=== PATIENT | male | born 1955 | race Caucasian/White ===

== ENCOUNTER → 2023-01-14 12:44 | Outpatient (CLI) | payer MEDICARE, SELFPAY ==
--- NOTE | 2023-01-14 13:08 | US_ITS ---
FINAL REPORT CLINICAL HISTORY: decreased pedal pulses, HTN, current smoker, bilateral claudication FINDINGS: COMPLETE ANKLE/BRACHIAL INDICES BILATERAL Complete ankle brachial indices were obtained. The right MARTY is 0.36. The left MARTY is 0.53. IMPRESSION: Advanced arterial occlusive disease on the right. Moderate arterial occlusive disease on the left. Recommend CTA or catheter directed angiography. Reviewed, Interpreted and Dictated by Carlo Galvan MD Transcribed by Renetta Darnell Authenticated and [facility]
== END ==
PROVIDERS: PCP Family Medicine; Visit Provider Nurse Practitioner Family
DX: R09.89 Other specified symptoms and signs involving the circulatory and respiratory systems (principal)
CPT/HCPCS: 93923

== ENCOUNTER → 2023-01-28 10:49 | Outpatient (CLI) | payer MEDICARE, SELFPAY ==
--- NOTE | 2023-01-28 10:50 | CA_ITS ---
FINAL REPORT TECHNIQUE: Color Doppler, duplex Doppler and mena scale sonography of the bilateral neck arterial vasculature was performed. Velocities were measured in the carotid arteries. Stenosis evaluation based on the validated velocity criteria. CLINICAL HISTORY: RAÚL BRUITS,HTN,SMOKER FINDINGS: The peak systolic velocity of the right common carotid artery is 85 cm/s. The peak systolic velocity of the right internal carotid artery is 145 cm/s and end diastolic velocity 26 cm/s. The ICA/CCA ratio is 1.7. A moderate amount of plaque is present. The right external carotid artery is patent. The right vertebral artery is patent with antegrade flow. The peak systolic velocity of the left common carotid artery is 88 cm/s. The peak systolic velocity of the left internal carotid artery is 282 cm/s and end diastolic velocity 26 cm/s. The ICA/CCA ratio is 3.6. A moderate amount of plaque is present. The left external carotid artery is patent.The left vertebral artery is patent with antegrade flow. IMPRESSION: Less than 50% carotid stenosis on the right. Greater than 70% carotid stenosis on the left. Bilateral patent vertebral arteries with antegrade flow. Recommend correlation with CTA or MRA Reviewed, Interpreted and Dictated by Richard Andrade III, MD Transcribed by Renetta Darnell Authenticated and [facility]
== END ==
PROVIDERS: PCP Family Medicine; Visit Provider Internal Medicine
DX: I10 Essential (primary) hypertension (principal); I73.9 Peripheral vascular disease, unspecified; R09.89 Other specified symptoms and signs involving the circulatory and respiratory systems; R68.89 Other general symptoms and signs; Z72.0 Tobacco use
CPT/HCPCS: 93880

== ENCOUNTER 2023-01-31 08:32 | Day surgery (SDC) | payer MEDICARE, SELFPAY ==
[2023-01-31] VITALS (13 sets, daily range): BP systolic 045–180; BP diastolic 70–104; PULSE 56–75; RESP 17–18; TEMP 36.9; O2SAT 96–100; BMI 18.8
--- NOTE | 2023-01-31 07:20 | IR_ITS ---
APPROVED REPORT Patient Location: Outpatient PROCEDURES Catheter placed in the abdominal aorta Abdominal aortography Repositioning the cath in the abdominal aorta Bilateral iliofemoral runoff INDICATION Abnormal MARTY 0.3 right side 0.5 left side, Peripheral artery disease, [place] claudication class III-IV Informed consent was obtained prior to the procedure. COMPLICATIONS NONE Estimated Blood Loss: LESS THAN 10 ML TECHNIQUE 1% lidocaine used anesthetize right groin the right femoral artery was accessed via the center technique and a 5 [place] sheath was placed in the right femoral artery. A pigtail catheter was advanced to the abdominal aorta and abdominal aortography was performed. The catheter was then repositioned and bilateral iliofemoral off was performed. At the end the procedure the apparatus was removed the patient was transferred to the postop holding in stable condition for sheath removal ANGIOGRAPHIC RESULTS Infrarenal abdominal aorta is atheromatous with 10 to 20% stenoses. The bilateral common iliac arteries have mild atheromatous plaque and are widely patent. The bilateral internal iliac arteries are patent. The bilateral external iliac arteries have 30% atheromatous plaque. The bilateral common femoral arteries have 30% atheromatous plaque. Right profunda femoris artery is patent. Right superficial femoral artery is subtotally occluded 1 cm distal to its origin. The vessel then reconstitutes at the mid popliteal level. There are additional 60 and 70% stenoses throughout the popliteal artery. The right anterior tibialis artery is proximally occluded. The right peroneal artery is patent proximally while the right posterior tibialis artery is subtotally occluded but then reconstitutes at mid calf. There appears to be single-vessel runoff into the foot on the right side Left superficial femoral artery is bluntly occluded less than 1 cm distal to its origin. The entire SFA is occluded and then reconstitutes at Johnathan's canal. The proximal popliteal artery then subtotally occluded with 80 to 90% stenoses. The infrageniculate popliteal artery is widely patent and gives rise to the anterior tibialis artery and the peroneal artery. The posterior tibialis artery is occluded. There is single-vessel runoff into the left foot from the anterior tibialis artery IMPRESSION Peripheral artery disease as described above Ongoing tobacco usage with multivessel and multi layer disease PLAN 1. Avoidance of tobacco products 2. Xarelto 2.5 twice daily plus aspirin 81 mg daily 3. Referred to vascular surgery to see if patient is a potential femoropopliteal candidate 4. Physical therapy 5. Evaluation for ischemic heart disease based on the severity of patient's PAD Electronically signed by : Al Fragoso MD 01/31/2023 13:51:00
--- NOTE | 2023-01-31 08:39 | CT_ITS ---
FINAL REPORT TECHNIQUE: Axial images were obtained through the chest without contrast. CLINICAL HISTORY: tobacco use,soa COMPARISON: None FINDINGS: There are small mediastinal nodes. Precarinal lymph node measures up to 1.6 cm. Subcarinal lymph node measures up to 1.8 cm. The heart size is normal. There is no pericardial pleural effusion. There is biapical pleural and parenchymal scarring. There are multiple calcified granulomas. There is a noncalcified nodule measuring about 5 mm in the posterior right upper lobe best seen on image 65 of series 3. Limited images of the upper abdomen are unremarkable. IMPRESSION: Multiple bilateral calcified granulomas. 5 mm noncalcified nodule posterior right upper lobe possibly related to noncalcified granuloma. Follow-up in 1 year recommended. Reviewed, Interpreted and Dictated by Carlo Galvan MD Transcribed by Ramya Lees Authenticated and [facility]
--- NOTE | 2023-01-31 08:39 | CA_ITS ---
APPROVED REPORT EXAM: Comprehensive 2D, Doppler, and color-flow Echocardiogram Supervisor Stage Carpentry: Jessica Villegas CRT Ht: 5 ft 7 in Wt: 120lbs BSA: 1.63 BP: 149/61 mmHg Indications: Shortness of Breath, Hypertension/HDD, smoker No parasternal images due to lung interference. 2D Dimensions LVOT 1.73 cm (M/F) 1.5-2.5 LA Volume 31.50 mL LA Volume Index 18.90 mL/m2 (M/F) 16-34 M-Mode Dimensions LVDd 4.10 cm (3.5-5.7) LVDs 3.13 cm (3.5-5.7) IVSd 1.19 cm (0.6-1.1) PWd 0.69 cm (0.6-1.1) EF (Teich) 47.70% FS 23.70% EDV (Teich) 74.20 mL TAPSE 2.76 (<1.7) ESV (Teich) 38.80 mL LV Diastology E Decel Time 257.00 (160-240 msec) E/A Ratio 0.92 MED E' 5.50 (< 7 cm/sec) MED A' 9.70 cm/s E'/MED E' Ratio 18.60 (>14) LAT E' 9.70 (<10 cm/sec) LAT A' 12.10 cm/s E/LAT E' Ratio 10.55 (>14) Aortic Valve AO Peak GR. 9.90 mmHg Mitral Valve MV A Velocity 111.00 (40-130 cm/s) E/A Ratio 0.92 MV Decel. Time 257.00 (160-240 ms) Tricuspid Valve TR P. Velocity 112.00 cm/s RAP Estimate 10.00 mmHg RVSP 15.00 mmHg Left Ventricle The left ventricle is normal size. The left ventricular systolic function is normal. The left ventricular ejection fraction is within the normal range. There is normal left ventricular wall thickness. There is normal LV segmental wall motion. The left ventricular diastolic function is normal. LVEF is 60%. Right Ventricle The right ventricle is normal size. The right ventricular systolic function is normal. Atria The left atrium size is normal. The right atrium size is normal. There is no Doppler evidence of interatrial shunt. Aortic Valve The aortic valve is mildly thickened. There is no aortic valvular stenosis. Trace aortic regurgitation. Mitral Valve The mitral valve is mildly thickened. No evidence of mitral valve stenosis. Trace mitral regurgitation. Tricuspid Valve The tricuspid valve leaflets are thin and pliable. Trace tricuspid regurgitation. RVSP is normal. Pulmonic Valve The pulmonary valve is normal in structure. Trace pulmonic regurgitation. Great Vessels The aortic root is normal in size. The ascending aorta is not well visualized. IVC is normal in size and collapses >50% with inspiration. Pericardium There is no pericardial effusion. Other Information Study Quality: Technically Difficult. Technically limited study due to lung disease. Conclusion Technically difficult study due to poor acoustic windows. Technically limited study due to no available parasternal windows in the setting of lung impedance. Normal biventricular systolic function. No significant valvular stenosis or regurgitation. Electronically signed by : Miriam Umanzor MD 02/04/2023 22:01:15
[2023-01-31 09:50] LABS: Basophils # 0.1 K/mm3 (0-0.2); Basophils % 0.7 % (0.1-2.0); Eosinophils # 0.3 K/mm3 (0.0-0.4); Eosinophils % 3.5 % (0.1-12.0); Hematocrit 53.4 % (42.0-52.0); Hemoglobin 17.3 g/dL (14.1-18.0); Lymphocytes # 0.8 K/mm3 (0.7-4.5); Lymphocytes % 10.3 % (10-50); Mean Corpuscular HGB Conc 32.5 g/dL (31.8-35.4); Mean Corpuscular Hemoglobin 31.9 pg (27.0-31.2); Mean Corpuscular Volume 98.3 fl (80-94); Mean Platelet Volume 9.4 fl (7.4-10.4); Monocytes # 0.5 K/mm3 (0.1-1.0); Neutrophils # 5.9 K/mm3 (1.8-7.8); Neutrophils % 78.5 % (37.0-80.0); Platelet Count 166 K/mm3 (142-424); Red Blood Count 5.43 M/mm3 (4.60-6.20); Red Cell Distribution Width 13.3 % (11.5-17.5); White Blood Count 7.5 K/mm3 (4.8-10.8)
[2023-01-31 10:17] LABS: Chloride 99 mmol/L (98-107); Potassium 4.4 mmoL/L (3.5-5.1); Sodium 136 mmol/L (136-145)
[2023-01-31 10:20] LABS: Anion Gap 13.4 mEq/L (5-15); Blood Urea Nitrogen 11 mg/dl (9-20); Calcium 9.3 mg/dl (8.4-10.2); Carbon Dioxide 28 mmol/L (22.0-30.0); Creatinine Clearance Estimated 54 mL/min (50-200); Estimated Glomerular Filt Rate 112 ml/min (>60); GFR (African American) 136 ML/MIN (>60); Glucose 96 mg/dl (74-100)
== END 2023-01-31 14:57 | disposition home or self-care (01) ==
PROVIDERS: PCP Family Medicine; Visit Provider Internal Medicine
DX: I10 Essential (primary) hypertension (principal); I70.213 Atherosclerosis of native arteries of extremities with intermittent claudication, bilateral legs; R09.89 Other specified symptoms and signs involving the circulatory and respiratory systems; F17.210 Nicotine dependence, cigarettes, uncomplicated; Z79.899 Other long term (current) drug therapy; Z79.01 Long term (current) use of anticoagulants; I65.23 Occlusion and stenosis of bilateral carotid arteries; J84.10 Pulmonary fibrosis, unspecified; I77.1 Stricture of artery; I70.293 Other atherosclerosis of native arteries of extremities, bilateral legs
CPT/HCPCS: 36247; 71250; 75625; 80048; 85025; 93306; 99152; C1725; C1769; C1894; J1644; Q9966

== ENCOUNTER → 2023-02-08 10:03 | Outpatient (CLI) | payer MEDICARE, SELFPAY ==
[2023-02-08 11:48] LABS: Alanine Aminotransferase 21 U/L (12-78); Alkaline Phosphatase 93 U/L (38-126); Anion Gap 13.6 mEq/L (5-15); Aspartate Amino Transferase 28 U/L (17-59); Bilirubin,Direct 0.1 mg/dl (0.0-0.4); Bilirubin,Indirect 0.3 mg/dL (0.0-0.9); Bilirubin,Total 0.4 mg/dl (0.2-1.3); Bilirubin,Unconjugated 0.3 mg/dL (0.0-1.1); Blood Urea Nitrogen 9 mg/dl (9-20); Calcium 9.1 mg/dl (8.4-10.2); Carbon Dioxide 27 mmol/L (22.0-30.0); Chloride 100 mmol/L (98-107); Chol/HDL Ratio 2.1 (1-3.5); Cholesterol 142 mg/dl (140-200); Estimated Glomerular Filt Rate 112 ml/min (>60); GFR (African American) 136 ML/MIN (>60); Glucose 96 mg/dl (74-100); HDL Cholesterol 67 mg/dl (40-60); Potassium 4.6 mmoL/L (3.5-5.1); Sodium 136 mmol/L (136-145); Total Protein,Serum 7.4 g/dl (6.3-8.2); Triglycerides 56 mg/dl (30-150); VLDL Cholesterol 11 mg/dL (0-40)
[2023-02-08 11:58] LABS: Direct LDL Cholesterol 63.76 mg/dL (100-129)
[2023-02-08 12:04] LABS: Free T4 (Free Thyroxine) 0.99 ng/dl (0.78-2.19)
[2023-02-08 12:18] LABS: Thyroid Stimulating Hormone 2.88 uIU/mL (0.465-4.68)
== END ==
PROVIDERS: PCP Family Medicine; Visit Provider Physician Assistant
DX: I10 Essential (primary) hypertension (principal); I65.29 Occlusion and stenosis of unspecified carotid artery; I73.9 Peripheral vascular disease, unspecified; J84.10 Pulmonary fibrosis, unspecified; R09.89 Other specified symptoms and signs involving the circulatory and respiratory systems; R68.89 Other general symptoms and signs; R93.89 Abnormal findings on diagnostic imaging of other specified body structures; Z01.810 Encounter for preprocedural cardiovascular examination; Z72.0 Tobacco use
CPT/HCPCS: 36415; 80048; 80061; 80076; 83735; 84439; 84443

== ENCOUNTER → 2023-02-16 11:42 | Outpatient (CLI) | payer MEDICARE, SELFPAY ==
--- NOTE | 2023-02-16 11:42 | NM_ITS ---
APPROVED REPORT Exam: Nuclear Stress Test Indication: HTN, HYPERLIPIDEMIA, TOB USE, SOB Patient Location: Outpatient Stress Tech: Melissa Mendes NM Tech:Felicia PengSUZAN RT (R)(N)(M) Ht: 5 ft 7 in Wt: 121 lbs HR: 60 bpm BP: 198/75 mmHg BSA: 1.63 m2 Rhythm: NSR TID: 1.09 BMI: 18.9 History: HTN, HYPERLIPIDEMIA, TOB USE, SOB Procedure: Patient received 0.4 mg of intravenous Lexiscan, resting heart rate 60 bpm, resting blood pressure 198/75 mmHg, with Lexiscan maximum heart rate achieved was 86 bpm which is % of the maximum predicted heart rate and blood pressure was 212/89 mmHg. With Lexiscan, patient denied any complaint of chest pain. Cardiac Stress and Resting SPECT Images: Cardiac Stress and Resting SPECT images were obtained using technetium 99m Myoview 31.6 mCi stress and 10.53 mCi at rest. Diaphragmatic attenuation is present. Resting and stress imaging in supine and prone positions demonstrate no definite evidence of fixed or reversible perfusion defects. Gated imaging demonstrates normal global and regional LV systolic function. LVEF is calculated at 60%. Conclusion: Diaphragmatic attenuation is present. No definite evidence of fixed or reversible perfusion defects. Gated imaging demonstrates normal global and regional LV systolic function. LVEF is calculated at 60%. Electronically signed by : Miriam Umanzor MD 02/19/2023 23:31:27
--- NOTE | 2023-02-16 14:54 | CA_ITS ---
APPROVED REPORT Exam: Pharmacologic Technologist: Melissa Mendes Ht: 5 ft 7 in Wt: 121 lbs BSA: 1.63 m2 HR: 60 bpm BP: 198/75 mmHg Rhythm: NSR Indications: Shortness of Air Medical History Medications: Amlodipine,,,,, Lisinopril,,,,, Aspirin,,,,, RoSUVASTATIN,,,,, RIvaROXABAN,,,,, Stress Test Details Test: LEXISCAN HR Resting HR: 66 bpm Max Heart Rate (APMHR): 152 bpm Max HR Achieved: 88 bpm Target HR (85% APMHR): 129 bpm % of APMHR: 58 Recovery HR: 65 bpm BP Resting BP: 198.0/75.0 mmHg Max BP: 212.0/89.0 mmHg Recovery BP: 203.0/71.0 mmHg ECG Resting ECG: Normal sinus rhythm, voltage criteria for LVH, PVC's Stress ECG: No significant ST changes Arrhythmia: PACs, PVCs Clinical Exercise duration: 04:00 min Highest Stage Achieved: Exercise capacity: 1.0 METs Stress ECG Conclusion Symptoms: Mild shortness of air and head discomfort. No chest pain. Arrhythmias/Ectopy: Occasional PVC and PAC. ST-T Changes: No significant ST changes Conclusion: Unremarkable Lexiscan stress test. Myoview images reported separately. The patient's blood pressure was noted to be elevated at baseline (1:45 pm Clonidine 0.1 mg PO given. 2:45 pm Blood pressure 178/82). Test Summary REST . . . . . . . Resting REST 06:22 . . 66 . 198/ 75 . . Stage 1 . . . . . . . Myoview Injected Stage 1 01:00 . . 83 . . . . Stage 2 01:00 . . 86 . 212/ 89 . . Stage 3 01:00 . . 79 . 192/ 82 . . Stage 4 01:00 . . 74 . 184/ 89 . Stop exercise at 04:00 RECOVERY 01:00 . . 75 . . . . RECOVERY 02:00 . . 73 . 194/ 75 . . RECOVERY 03:00 . . 73 . 191/ . . RECOVERY 04:00 . . 76 . 191/ . . RECOVERY 05:00 . . 65 . 191/ . . RECOVERY 06:00 . . 68 . . . RECOVERY 06:04 . . 67 . . . Electronically signed by : Miriam Umanzor MD 02/19/2023 23:29:43
== END ==
LOC: RAD 11:42
PROVIDERS: PCP Family Medicine; Visit Provider Physician Assistant
DX: I10 Essential (primary) hypertension (principal); I65.29 Occlusion and stenosis of unspecified carotid artery; I73.9 Peripheral vascular disease, unspecified; J84.10 Pulmonary fibrosis, unspecified; R09.89 Other specified symptoms and signs involving the circulatory and respiratory systems; R68.89 Other general symptoms and signs; R93.89 Abnormal findings on diagnostic imaging of other specified body structures; Z01.810 Encounter for preprocedural cardiovascular examination; Z72.0 Tobacco use; R06.02 Shortness of breath
CPT/HCPCS: 78452; 93017; A9502; J2785

== ENCOUNTER → 2023-02-24 09:51 | Outpatient (CLI) | payer MEDICARE, SELFPAY ==
--- NOTE | 2023-02-24 09:51 | CT_ITS ---
FINAL REPORT TECHNIQUE: Thin section axial CT with IV contrast supplemented with multiplanar reconstruction under CT angiogram protocol. This study was performed with techniques to keep radiation doses as low as reasonably achievable (ALARA). Individualized dose reduction techniques using automated exposure control or adjustment of mA and/or kV according to the patient''s size were employed. NASCET criteria was utilized during interpretation. CLINICAL HISTORY: abnl carotid u/s/tommy FINDINGS: Aortic arch: Arch shows no significant narrowing. There is mild stenosis of the proximal left subclavian artery measuring approximately 30%. Right carotid: There is calcified plaque at the carotid bifurcation and carotid bulb with less than 50% stenosis. Left carotid: There is 30% stenosis of the left common carotid artery. There is calcified plaque at the left carotid bifurcation and carotid bulb. There is 50-60% stenosis at the level of the distal carotid bulb. There are several mild stenoses of the more distal ICA. Vertebral: Left vertebral artery is dominant. There is mild stenoses of the bilateral vertebral arteries. IMPRESSION: 50-60% stenosis of the proximal left internal carotid artery. Multiple other mild stenoses. Reviewed, Interpreted and Dictated by Richard Andrade III, MD Transcribed by Renetta Darnell Authenticated and [facility]
== END ==
LOC: RAD 09:51
PROVIDERS: PCP Family Medicine; Visit Provider Physician Assistant
DX: I65.29 Occlusion and stenosis of unspecified carotid artery (principal); R09.89 Other specified symptoms and signs involving the circulatory and respiratory systems; R93.89 Abnormal findings on diagnostic imaging of other specified body structures; Z72.0 Tobacco use; I10 Essential (primary) hypertension
CPT/HCPCS: 70498; Q9967

== ENCOUNTER → 2023-03-15 16:06 | Outpatient (CLI) | payer MEDICARE, SELFPAY ==
--- NOTE | 2023-03-15 16:11 | XR_ITS ---
PROCEDURE INFORMATION: Exam: XR Left Foot Complete; Alignment Exam date and time: 03/15/2023 4:13 PM Age: 68 years old Clinical indication: Pain; Foot; Left; Additional info: Foot pain TECHNIQUE: Imaging protocol: Radiologic exam of the left foot. Views: 3 or more views. COMPARISON: None FINDINGS: Bones/joints: Minimal enthesophyte plantar margin of the calcaneus at the site of attachment of the plantar aponeurosis. Marked demineralization at the level of the 3rd 4th and 5th distal phalanx. Soft tissues: Normal. IMPRESSION: 1. No evidence of acute osseous injury 2. Asymmetric osteopenia 3rd 4th and 5th distal phalanx. If there is concern for osteomyelitis, follow-up with magnetic resonance imaging without and with contrast.
--- NOTE | 2023-03-15 16:11 | XR_ITS ---
PROCEDURE INFORMATION: Exam: XR Right Foot Complete; Alignment Exam date and time: 03/15/2023 4:13 PM Age: 68 years old Clinical indication: Pain; Foot; Right; Additional info: Foot pain TECHNIQUE: Imaging protocol: Radiologic exam of the right foot. Views: 3 or more views. COMPARISON: None FINDINGS: Bones/joints: Minimal enthesophyte plantar margin of the calcaneus at the site of attachment of the plantar aponeurosis. Erosive changes involving the great toe. Clinically correlate regarding psoriatic or gouty arthritis. Soft tissues: Soft tissue swelling involving the great toe. IMPRESSION: 1. Erosive changes involving the great toe. Clinically correlate regarding psoriatic or gouty arthritis. 2. No evidence of acute osseous injury.
== END ==
PROVIDERS: PCP Family Medicine; Visit Provider Nurse Practitioner Family
DX: M79.671 Pain in right foot (principal); M79.672 Pain in left foot
CPT/HCPCS: 73630